=== PATIENT | female | born 1945 | race Caucasian/White ===

== ENCOUNTER 2025-04-28 07:02 | Inpatient (IN) | payer MEDICARE, MEDICAID ==
[~2025-04-28] VITALS: Ht 165.1 cm; Wt 80.0 kg
--- NOTE | 2025-04-28 07:07 | ELECTROCARDIOGRAPH REPORT ---
[facility] Test Date: 2025-04-28 Test Time: 07:04:52 Pat Name: CANELO MCDOWELL Department: EMERGENCY ROOM Room: [place] [address] Gender: F Cardiology Consultant: AMAN : 1945 Requested By: JENNIFFER KING Order Number: [id number] Reading MD: Dr. DALY Olmedo Measurements Intervals [place] Rate: 95 P: 205 WI: 226 QRS: 71 QRSD: 128 T: 86 QT: 362 QTc: 455 Interpretive Statements Sinus or ectopic atrial rhythm Sinus pause Prolonged WI interval Nonspecific intraventricular conduction delay Inferior infarct, acute (RCA) Minimal ST elevation, anterior leads Probable RV involvement, suggest recording right precordial leads Electronically Signed On 05-07-2025 13:50:[address] DALY Olmedo Please click the below link to view image of tracing.
--- NOTE | 2025-04-28 07:32 | Physician Documentation ---
Addendum CHIEF COMPLAINT/HPI: The patient is a 79-year-old female who arrives here from [facility] with a history of paroxysmal atrial fibrillation, on Eliquis and amiodarone. The patient complained of some chest pain around 5:00 a.m. this morning and an EKG revealed ST-elevation in the inferior leads. The patient was given aspirin and nitroglycerin before she arrived here. There is a verbal report of the patient having been DNR in the past but this was not obtained in writing today. She does have a surrogate decision maker who we have not been able to reach as of 7:30 a.m. Unfortunately, I am not able to obtain history beyond the patient's name and information derived in accompanying forms as her response to any inquiry has been Leave me alone. REVIEW OF SYSTEMS: Unable to obtain due to patient unresponsiveness to verbal inquiry. PHYSICAL EXAMINATION: Vitals and nursing note reviewed. Constitutional: General: Patient is awake, alert, oriented to name only in no acute distress and well appearing. Speech is clear and lucid. Appearance: Normal appearance. Patient is not ill-appearing, toxic-appearing or diaphoretic. HENT: Head: Normocephalic and atraumatic. Mouth: Mucous membranes are moist. Pharynx: Oropharynx is clear. Eyes: General: No scleral icterus. Extraocular Movements: Extraocular movements intact. Pupils: Pupils are equal, round, and reactive to light. Neck: Supple, no Kernig or Brudzinski sign. Cardiovascular: Rate and Rhythm: Normal rate and regular rhythm. Heart sounds: No murmur heard. Pulmonary: Effort: No respiratory distress. Breath sounds: No wheezing, rhonchi or rales. Abdominal: General: There is no distension. Palpations: There is no fluid wave, hepatomegaly or mass. Tenderness: There is no abdominal tenderness. There is no guarding. Musculoskeletal: General: No swelling or deformity. Skin: Coloration: Skin is not jaundiced. Findings: No erythema or rash. Neurological: Mental Status: Patient is alert. MEDICAL DECISION MAKING: Differential Diagnosis Chest Pain include (but is not limited to) MN, ACS, Pneumonia, Pneumothorax, PE, Aortic Dissection, Pericarditis, Myocarditis, Anemia, GERD and Musculoskeletal Pain. I texted the EKG to Dr. Barrera, caseworker on-call (7:25 a.m.) who indicated that he felt this patient was a poor candidate for the labor mediator. Departure Disposition: ADMITTED INPATIENT Admitted to Inpatient Unit: to hospitalist Impression: Primary Impression: Acute coronary syndrome Additional Impression: Myocardial infarction Condition: JENNIFFER Gregory MD Apr 28, 2025 07:32
--- NOTE | 2025-04-28 07:33 | RADIOLOGY REPORT ---
EXAM: DI CHEST,SINGLE VIEW HISTORY: CP COMPARISON: None TECHNIQUE: Portable upright AP view of the chest was performed. FINDINGS: No pneumothorax, consolidative infiltrates, or pulmonary edema. The heart is borderline enlarged. IMPRESSION: No acute intrathoracic process.
[2025-04-28 07:36] LABS: MEAN PLATELET VOLUME 8.3 FL (7.4-10.4); RED CELL DISTRIBUTION WIDTH 15.2 % (11.5-14.5)
[2025-04-28 08:03] LABS: CREATININE 0.94 MG/DL (0.40-0.90); PRO BRAIN NATRIURETIC PEPTIDE 1518 PG/ML (0-450); TOTAL CARBON DIOXIDE 26.7 MMOL/L (24-32); eCRCL 44 ML/MIN; eGFR 58 ML/MIN
--- NOTE | 2025-04-28 08:30 | CONSULTATION REPORT ---
Cardiac Consultation Report Providers to CC ~ Subjective Subjective Cardiology consult dictation ; year old female was sent from [facility] for an episode of chest pain 12 lead electrocardiogram was performed she was initially declared an acute MS then due to her mental status and the some records stating that she is DNR end of farther inability to touch the patient without her fighting back it was decided to cancel the acute MS. She is on Eliquis for chronic atrial fibrillation her [address] elevation two three and AVF. She is not complaining of any pain. Was sleeping peacefully until being awoken. Objective Vitals Vital Signs Date Time Temp Pulse Resp B/P (MAP) Pulse Ox O2 Delivery O2 Flow Rate FiO2 04/28/25 07:57 19 04/28/25 07:21 95 96 04/28/25 07:03 97.9 Lab Results: 04/28/25 0725 04/28/25 0725 Objective Does not know where she is does not know what facility she was in she thinks she has a physician in [place]. Thinks 3 minutes Shan to to the ground and brought her here. My attempts to examine her she pushes me away do not touch me do not do that. I did not hear heart murmur on examining her I could not feel any pulses in her feet the right leg is bandaged from the thigh to her toes. Left leg deformed feet no pulses in her left foot. Problem\Assessment\Plan Additional Plan Impression: Patient with dementia unable to cooperate in any way she would require general anesthesia and intubation perform any procedures on her. She has not she is flaccid not complaining. She is having an inferior wall MS with full anticoagulation with Eliquis the only medication that I have on her. Recommendation: I agree with DNR status. Comfort care. CHARLA ALVAREZ MD Apr 28, 2025 08:30
[2025-04-28 09:07] LABS: INR 1.0 INR
[2025-04-28 09:10] LABS: ETHANOL < 10 MG/DL (<10)
[2025-04-28] MEDS ORDERED: ondansetron/PF 4mg/2ml inj IV PRN (09:50)
[2025-04-28] MEDS ORDERED: magnesium hydroxide 30ml (MOM) UD suspension PO PRN (09:50)
[2025-04-28] MEDS ORDERED: magnesium sulf-water 2g/50mL 50 ML IV PRN (09:50)
[2025-04-28] MEDS ORDERED: potassium Cl 40MEQ/1/2NS 520ml 520 ML IV PRN (09:50)
[2025-04-28] MEDS ORDERED: morphine 4 MG/ML inj SYRINge IV PRN ×2 (09:50)
[2025-04-28] MEDS ORDERED: magnesium sulf-water 4G/100mL 100 ML IV PRN (09:50)
[2025-04-28] MEDS ORDERED: potassium Cl 20 mEq SR tablet PO PRN (09:50)
[2025-04-28] MEDS ORDERED: mag hydrox/Alum hydrox/simeth 30ml oral suspension PO PRN (09:50)
[2025-04-28] MEDS ORDERED: magnesium Cl slow-release 64mg tablet PO PRN (09:50)
[2025-04-28] MEDS ORDERED: HYDROcodone/acetaminophen 5mg/325mg tablet PO PRN (09:50)
[2025-04-28] MEDS: enoxaparin 80mg/0.8ml syringe SUBCUT SCH (10:38)
[2025-04-28 11:00] LABS: URINE AMPHETAMINE SCREEN NEGATIVE (Neg); URINE BARBITUATE SCREEN NEGATIVE (Neg); URINE BENZODIAZEPINES SCREEN NEGATIVE (Neg); URINE CANNABINOID SCREEN NEGATIVE (Neg); URINE COCAINE SCREEN NEGATIVE (Neg); URINE METHADONE SCREEN NEGATIVE (Neg); URINE OPIATE SCREEN POSITIVE (Neg); URINE PHENCYCLIDINE SCREEN NEGATIVE (Neg)
[2025-04-28] MEDS: normal saline 1000ml 1,000 ML IV SCH (11:38)
[2025-04-28] MEDS: normal saline 1000ml 1,000 ML IV ONE (12:18)
[2025-04-28] MEDS ORDERED: LEVO-65 PO (12:24)
[2025-04-28] MEDS ORDERED: OLAN-38 PO (12:24)
[2025-04-28] MEDS ORDERED: METR-159 PO (12:24)
[2025-04-28] MEDS ORDERED: ATOR-411 PO (12:24)
[2025-04-28] MEDS ORDERED: METO25TA6 PO (12:24)
[2025-04-28] MEDS ORDERED: LANTUS SUBCUT (12:24)
[2025-04-28] MEDS ORDERED: AMIO200T76 PO (12:24)
[2025-04-28] MEDS ORDERED: BISA10SU64 RC (12:24)
[2025-04-28] MEDS ORDERED: MELA3TAB41 PO (12:24)
--- NOTE | 2025-04-28 12:52 | ELECTROCARDIOGRAPH REPORT ---
[facility] Test Date: 2025-04-28 Test Time: 12:50:37 Pat Name: CANELO MCDOWELL Department: [facility] Patient ID: [facility]-[id number] Room: [place] [address] Gender: F Instrument Maintenance Supervisor: : 1945 Requested By: KARSTEN HUANG Order Number: [id number] Reading MD: Dr. DALY Olmedo Measurements Intervals [place] Rate: 78 P: -4 [place]: 191 QRS: 40 QRSD: 96 T: 76 QT: 417 QTc: 476 Interpretive Statements Sinus rhythm Abnormal R-wave progression, early transition Electronically Signed On 04-29-2025 19:22:[address] DALY Olmedo Please click the below link to view image of tracing.
[2025-04-28 13:05] LABS: URINE AMPHETAMINE SCREEN NEGATIVE (Neg); URINE BARBITUATE SCREEN NEGATIVE (Neg); URINE BENZODIAZEPINES SCREEN NEGATIVE (Neg); URINE CANNABINOID SCREEN NEGATIVE (Neg); URINE COCAINE SCREEN NEGATIVE (Neg); URINE METHADONE SCREEN NEGATIVE (Neg); URINE OPIATE SCREEN POSITIVE (Neg); URINE PHENCYCLIDINE SCREEN NEGATIVE (Neg)
--- NOTE | 2025-04-28 16:41 | PROGRESS NOTE ---
Progress Note Cardiology Providers to CC ~ Objective Vitals Cardiology follow-up note: Dr. De Leon called me to re-evaluate the patient and she had momentary lucidity. Nursing staff in the ER tell me that she continues to scream out in five the residents have her records he could not find any . Carotid formalin electrocardiogram with the nurses Health the patient's screams and fights and does not cooperate. I was able to listen to her this time and she does have a systolic murmur and she has a palpable pulse in her left groin. No palpable pulses in her feet. Records found states that she has vascular dementia. My recommendations are unchanged: 1. Medical therapy only. Resume the Eliquis. If desire at Plavix. She did have an ST elevated IN by EKG. 2. Should be DNR status. 3. Not a candidate for invasive evaluation and treatment. 4. He does not have a power of litigation attorney no one to take care of her the name that was found was called up she is a retired nurse and she says I am not responsible for the patient and I am not her POA. Result Diagram: 04/28/25 0725 04/28/2525 Coagulation Studies Laboratory Tests Test 04/28/25 07:23 Prothrombin Time 10.7 SECONDS (9.0-12.0) INR International Normalized Ratio 1.0 INR Coagulation Comments Problem\Assessment\Plan Additional Plan Recommendation: Patient once again is not a candidate for invasive evaluation. Medical therapy only. Supportive care. DNR status. CHARLA ALVAREZ MD Apr 28, 2025 16:41
--- NOTE | 2025-04-28 17:03 | HISTORY AND PHYSICAL-Residence ---
History & Physical Providers to CC Resident Creating Document: SEVEN MARIANO RES ~ History of Present Illness Primary Medical Doctor: Unknown Reason for Admit\\Complaint: STEMI History of Present Illness This is a 79-year-old female patient with a past medical history of hypertension, atrial fibrillation, type 2 diabetes mellitus, hyperlipidemia, vascular dementia and peripheral arterial disease with recent fem-pop bypass surgery presents to the hospital from [facility] with complaints of chest pain that began around 5:00 a.m. this morning. A stat EKG performed revealed a STEMI in the inferior leads, the patient is given aspirin nitroglycerin in the EMS and was brought into the hospital for STEMI. Information has been obtained from medical records from [facility], ER physician and Dr. Barrera as the patient is minimally conversant. The patient has vascular dementia with waxing and waning consciousness as per the prior medical records due to which at the time of evaluation by the physicians she has been agitated. With her ongoing mentation, Dr. Barrrea has deemed the patient to not be a candidate for any cardiac interventions due to risk of poor compliance, inability to cooperate for the procedure as well as due to the code status of DNR/DNI. At the time of exam, the patient denies any chest pain and has been resting comfortably in bed. Past history prior to this hospitalization: On speaking to Elizabeth, the patient's land retail field supervisor who is listed as a POA but it is not her POA as she is completely unrelated to the patient. Elizabeth reports that the patient only listed as her emergency contact but never as her POA. The patient was at [facility] after she had a complicated femoral-popliteal bypass graft surgery at [facility] with resection and reanastomosis by Dr. Giordano on 04/11 after which she developed paroxysmal AFib on 04/13 requiring amiodarone infusion. The hospitalization was further complicated by infected wounds growing Enterobacter requiring meropenem supplementation. She had to go back into the operating room for hemorrhage after the surgery and went into hemorrhagic shock. She required mechanical ventilation at 100% FiO2 for a prolonged period of time. She was then discharged on prolonged antibiotic therapy for 14 days to [facility]. Elizabeth states that since this procedure, she has steadily gone downhill in terms of her mentation. She also states that she has no family at all and she lives all by herself. Current evaluation of code status: Elizabeth is unable to legally provide the code status. Dr. Barrera team's the patient to be DNR and recommends continuing with medical management. Re-evaluated with the patient, she has a waxing and waning of consciousness. She would want to be a DNR and repeatedly says "leave me alone" Allergies: Coded Allergies: No Known Allergies (Unverified , 04/28/25) Home Medications Home Medications Active Reported Olanzapine 10 Mg Tablet 1 Tab PO BID 30 Days Flagyl* (Metronidazole) 500 Mg Tablet 1 Tab PO Q8H 10 Days Metoprolol Tartrate 25 Mg Tablet 1 Tab PO Q12H 30 Days Melatonin 3 Mg Tablet.sa 1 Tab PO HS 30 Days Levofloxacin 500 Mg Tablet 1 Tab PO DAILY 10 Days Lantus* (Insulin Glargine) 100 Unit/1 Ml Vial 25 Units SUBCUT HS 30 Days Dulcolax (Bisacodyl) 10 Mg Supp.rect 1 Supp RC DAILY 10 Days Lipitor (Atorvastatin Calcium) 40 Mg Tablet 1 Tab PO DAILY 30 Days Cordarone (Amiodarone HCl) 200 Mg Tablet 200 Mg PO DAILY Past Medical History Past Medical History Hypertension Paroxysmal atrial fibrillation Peripheral arterial disease status post fem-pop bypass Type 2 diabetes mellitus Hyperlipidemia Vascular dementia Past Surgical History Surgical History Comment Fem-pop bypass surgery Past Social History Social History Comment Unknown ROS ROS Unable to be obtained Exam Vitals: Vital Signs Date Time Temp Pulse Resp B/P (MAP) Pulse Ox O2 Delivery O2 Flow Rate FiO2 04/28/25 15:24 74 18 101/61 (74) 95 04/28/25 12:09 96.4 General: General: Waxing and waning level of consciousness, agitated, noncooperative HEENT: Conjunctiva pink, Sclera clear, Mucus Membranes dry Extremities: Dressing of the right lower extremity, onychomycosis of the bilateral feet. Erythema of the bilaterally visible feet Skin: Warm and Dry. No visible rashes Diagnostic Data Last Recorded Lab Results: 04/28/25 0725 04/28/25 0725 Diagnostic Data: Laboratory Tests Test 04/28/25 07:23 Prothrombin Time 10.7 SECONDS (9.0-12.0) INR International Normalized Ratio 1.0 INR Coagulation Comments Advance Care Planning Advanced Care plannin - 30 Minutes Additional Plan STEMI: Right coronary artery disease Hypotension secondary to above EKG reveals ST elevations in II, III and AVF leads Sequential troponins at 80, 700 and 385 Not a candidate for cardiac catheterization; unable to obatin echocardiogram due to agitation Medical management with Lovenox 80 mg b.i.d. Follow lipid panel. Continue home medication of Lipitor 40 mg daily Nitroglycerin PRN for chest pain For hypotension, 1 L IV fluid bolus given. Continue IVF at a rate of 100 cc/hour. Maintain map greater than 60 Continue front desk monitor Vascular dementia Agitation secondary to above Positive fentanyl in tox screen from unknown source Maintain fall precautions Frequent reorientation Avoid benzodiazepine Restart quetiapine after medication reconciliation Persistent atrial fibrillation: Rate controlled Chads Vasc: 8 Restart home medication of amiodarone and metoprolol for rate control On home medication of metoprolol tartrate 25 mg b.i.d., we will continue the same. Continue Lovenox this time As per prior medical records, patient has stopped Eliquis due to unwillingness to use the medication due to recent hemorrhagic shock episode Peripheral arterial disease: Status post fem-pop bypass graft on 04/11/2025 Requiring re-evaluation on 04/18/25 Enterobacter wound infection post surgery; continue Levaquin and Flagyl until 05/11/2025 Completed antibiotic therapy at [facility] Wound care consulted Type 2 Diabetes mellitus: Insulin-dependent Well-controlled; A1c 5.8 As per medical records, patient was on Lantus 25 units nightly and Humalog sliding Placed on hyperglycemia/hypoglycemia protocol with 10 units Lantus and low-dose sliding scale insulin As patient is not undergoing any cardiac surgery and is not critically ill, goal as per regular protocol between 110-130mg/dl Hypertension: Maintain blood pressure between 120-130 mmHg SBP Restart home medication of metoprolol tartrate 25 mg b.i.d. Severe protein energy malnutrition: Albumin 1.9 Nutrition consulted Ensure TID Lines: PIV Code status: DNR; discussed with the patient was 16-30 minutes regarding the code status and patient would like to be a DNR. Diet: Heart healthy diet DVT prophylaxis: Lovenox Seven Mariano PGY3, Internal medicine resident Patient was seen, examined and discussed with the attending MD, Dr. Lara Date of Service: Apr 28, 2025 Billing Provider: LISSETTE LARA MD Common Visit Codes: 77325-[id number] INP/OBS CARE (HIGH) Secondary Visit Codes: [id number] CARE PLAN 30 MINUTES SEVEN MARIANO, RES Apr 28, 2025 17:03 LISSETTE LARA MD Apr 30, 2025 07:52
--- NOTE | 2025-04-28 17:13 | ELECTROCARDIOGRAPH REPORT ---
[facility] Test Date: 2025-04-28 Test Time: 17:09:29 Pat Name: CANELO MCDOWELL Department: [facility]S Room: [place] [address] Gender: F Investor Relations Specialist: Mary Zavala : 1945 Requested By: CHARLA ALVAREZ Order Number: [id number] Reading MD: Dr. DALY Olmedo Measurements Intervals [place] Rate: 82 P: 31 DC: 197 QRS: 20 QRSD: 95 T: 92 QT: 372 QTc: 435 Interpretive Statements Sinus rhythm Minimal ST depression, lateral leads Minimal ST elevation, inferior leads Electronically Signed On 04-29-2025 19:20:[address] DALY Olmedo Please click the below link to view image of tracing.
[2025-04-28] MEDS ORDERED: DEXTROSE 15 GM of carb/4 tabs (each vial/BOTTLE has 4 tablets) PO PRN ×2 (17:45)
[2025-04-28] MEDS ORDERED: glucagon, human recombinant 1mg kit SUBCUT PRN (17:45)
[2025-04-28] MEDS ORDERED: dextrose 50%-water 50ml dispensing syringe IV PRN ×2 (17:45)
[2025-04-28 18:00] VITALS: BP 124/78; PULSE 88; RESP 13; TEMP 97.4; O2SAT 97
[2025-04-28] MEDS: Ensure Enlive - 237ML PO SCH (18:37)
[2025-04-28 20:00] VITALS: RESP 18; O2SAT 97
[2025-04-28] MEDS: K and/or MAG REPLACEMENT MC SCH (20:00)
[2025-04-28] MEDS: docusate sod 100mg capsule PO SCH (20:00)
[2025-04-28] MEDS: INSULIN LISPRO 100 UNIT/ML INSULN.PEN MULTI-DOSE SQ SCH (21:00)
[2025-04-28] MEDS: insulin glargine (Lantus) pen - multi-dose SQ SCH (21:00)
[2025-04-29] VITALS (8 sets, daily range): BP systolic 99–152; BP diastolic 52–82; PULSE 77–94; RESP 16–22; TEMP 97.1–99; O2SAT 96–98
[2025-04-29] MEDS: metroNIDAZOLE-Flagyl 500mg/NS 100 ML IV SCH (00:18)
[2025-04-29 06:48] LABS: MEAN PLATELET VOLUME 8.9 FL (7.4-10.4); RED CELL DISTRIBUTION WIDTH 14.8 % (11.5-14.5)
[2025-04-29 07:21] LABS: CHOL/HDL RATIO 3.3 (0.00-4.99); CREATININE 0.63 MG/DL (0.40-0.90); LDL CHOLESTEROL 64 MG/DL (50-100); TOTAL CARBON DIOXIDE 26.2 MMOL/L (24-32); eCRCL 66 ML/MIN; eGFR > 90 ML/MIN
[2025-04-29] MEDS ORDERED: metoprolol succinate 25mg (24-HOUR) SR. Tablet PO SCH (08:00)
[2025-04-29] MEDS: potassium Cl 20 mEq SR tablet PO PRN (08:37)
[2025-04-29] MEDS: levoFLOXACIN-Levaquin 500mg/D5 100 ML IV SCH (08:38)
--- NOTE | 2025-04-29 14:46 | PROGRESS NOTE ---
Progress Note Cardiology Providers to CC ~ Subjective Subjective Cardiology progress note: Resolved inferior wall myocardial infarction. Vascular dementia uncooperative patient not a candidate for invasive evaluation. Recommended for DNR status. Patient resisting nursing care she has feces that needs to be cleaned. Objective Result Diagram: 04/29/25 0554 04/29/25 0554 Objective No high-grade arrhythmias on monitoring. Systolic murmur heard. Right leg bandage from groin to meet foot chronic. Circulation and left foot by palpation [id number]. Has dementia moves all limbs appropriately no swallowing difficulty. Episodic impulsive uncontrolled behavior. Coagulation Studies Laboratory Tests Test 04/28/25 07:23 Prothrombin Time 10.7 SECONDS (9.0-12.0) INR International Normalized Ratio 1.0 INR Coagulation Comments Other Results She had an electrocardiogram yesterday took three nurses over an hour to do an electrocardiogram due to patient behavior. There are no Q-waves inferiorly. She came in with ST-elevation in three and AVF. Anterior wall shows chronic ischemic changes. Problem\Assessment\Plan Additional Plan Assessment: Acute coronary thrombus has resolved. Patient is not a candidate for invasive evaluation not a candidate for intervention or coronary bypass grafting. Recommendation: Patient was on chronic anticoagulation could act Plavix. However her laboratories are much worse with rehydration. He is nutritionally deficient albumins one. Hemoglobin down to nine. Case of sudden cardiac do not resuscitate. I will sign off as I am not adding anything to patient management. CHARLA ALVAREZ MD Apr 29, 2025 14:46
--- NOTE | 2025-04-29 14:57 | PROGRESS NOTE- Residence ---
Progress Note - Resident Providers to CC Resident Creating Document: SEVEN MARIANO, ANJALI ~ Central Line/PICC still needed: No Harris-Non Protocol Harris Indications Met/Not Met: F/C Indications Not Met Antibiotic Timeout Antibiotic Ordered?: Yes Subjective Patient has a waxing and waning level of consciousness, she has been compliant with oral medications and physical exam in the morning but later in the afternoon, patient is denying everything. She continues to deny her Lovenox. However, she is agreeable to obtain the echocardiogram today. She is otherwise comfortable and has no other acute complaints of chest pain or shortness of breath. Objective Vital Signs Date Time Temp Pulse Resp B/P (MAP) Pulse Ox O2 Delivery O2 Flow Rate FiO2 04/29/25 08:37 82 04/29/25 08:00 16 97 Room Air 04/29/25 06:00 98.4 152/82 (105) Result Diagram: 04/29/25 0554 04/29/25 0554 General: Awake and Alert, no acute distress. HEENT: Conjunctiva pink, Sclera clear, Mucus Membranes moist. Resp: Unlabored. Lungs clear to auscultation bilaterally. Heart: Regular Rate and rhythm, normal S1 and S2, grade 4 pansystolic murmur heard loudest in the mitral area Abdomen: Soft and non tender no organomegaly Extremities: Dressing of the right lower extremity with minimal drainage, onychomycosis of the bilateral feet. Erythema of the bilaterally visible feet Skin: Warm and Dry. No visible rashes Coagulation Studies Laboratory Tests Test 04/28/25 07:23 Prothrombin Time 10.7 SECONDS (9.0-12.0) INR International Normalized Ratio 1.0 INR Coagulation Comments Assessment Assessment This is a 79-year-old female patient with a past medical history of peripheral arterial disease status complex and complicated post fem-pop bypass surgery on the right lower limb with a complications including hemorrhagic shock postoperatively and acute hypoxemic respiratory failure requiring prolonged intubation and mechanical ventilation. She has baseline cognitive impairment making her a difficult patient to remain compliant with medications. She was transferred to [facility] for long-term care. She was then transferred from [facility] to our hospital due to new onset chest pain that began early in the morning, she was found to have a STEMI in the inferior wall and was transferred for further care. Due to her baseline cognitive impairment, the patient is not a candidate for cardiac catheterization and is noncompliant to the procedure as well. Hence, she is currently being managed medically. Plan Plan STEMI: Right coronary artery disease Hypotension secondary to above EKG reveals ST elevations in II, III and AVF leads Sequential troponins at 80, 700, 1385 ans today it is at 4654 ([address]) Declining Lovenox. No further episodes of chest pain. Obtain echocardiogram Continue monitoring closely, NTG p.r.n. for chest pain. Discontinue IVF today; close hemodynamic monitoring Continue cafeteria monitor Vascular dementia Agitation secondary to above Positive fentanyl in tox screen from unknown source Maintain fall precautions Frequent reorientation Avoid benzodiazepine Continue Seroquel 25 mg HS Persistent atrial fibrillation: Rate controlled Chads Vasc: 8; high-risk of stroke Restart home medication of amiodarone and metoprolol tartrate 25 mg b.i.d. for rate control Declining all anticoagulation including Lovenox As per prior medical records, patient has stopped Eliquis due to unwillingness to use the medication due to recent hemorrhagic shock episode Peripheral arterial disease: Status post fem-pop bypass graft on 04/11/2025 Requiring surgical reintervention on 04/18/25 Enterobacter wound infection post surgery; continue p.o. Levaquin and Flagyl until 05/11/2025 Wound care consulted Heart failure of unknown ejection fraction: In no acute exacerbation Cardiomegaly and pulmonary vascular congestion evident on the chest x-ray Continue metoprolol 25 mg b.i.d. Follow echocardiogram Close hemodynamic monitoring Type 2 Diabetes mellitus: Insulin-dependent Well-controlled; A1c 5.8 As per medical records, patient was on Lantus 25 units nightly and Humalog sliding Placed on hyperglycemia/hypoglycemia protocol with 10 units Lantus and low-dose sliding scale insulin Patient declining insulin; continue monitoring via Accu-Cheks Maintain goal between 110-140 mg/dl Hypertension: Maintain blood pressure between 120-130 mmHg SBP Restart home medication of metoprolol tartrate 25 mg b.i.d. Severe protein energy malnutrition: Albumin 1.9 Nutrition consulted Ensure TID Lines: PIV Code status: DNR Diet: Heart healthy diet, ensures DVT prophylaxis: Lovenox; actively moving Seven Mariano PGY3, Internal medicine resident Patient was seen, examined and discussed with the attending MD, Dr. Lara Date of Service: Apr 29, 2025 Billing Provider: LISSETTE LARA MD Common Visit Codes: [id number] INP/OBS CARE(HIGH) SEVEN MARIANO, RES Apr 29, 2025 14:56 LISSETTE LARA MD Apr 30, 2025 07:54
[2025-04-29] MEDS: HYDROcodone/acetaminophen 10/325mg tab PO PRN (16:28)
--- NOTE | 2025-04-29 19:53 | CARDIOLOGY REPORT ---
APPROVED REPORT EXAM: Comprehensive 2D, Doppler, and color-flow Echocardiogram. Patient Location: [facility] Heart Rate: 80's bpm Rhythm: SINUS Indications MYOCARDIAL INFARCTION ATRIAL FIBRILLATION HYPERTENSION DIABETES MELLITUS 2 Rail Gang Supervisor: NONE Previous echo: NONE 2D Dimensions RVDd 3.2 cm IVSd 1.4 (0.7-1.1cm) LVDd 4.8 cm PWd 1.4 (0.7-1.1cm) IVSs 1.5 (0.8-1.2cm) LVDs 2.7 (2.5-4.0cm) PWs 1.6 (0.8-1.2cm) LVOT Diameter 2.07 (1.8-2.4cm) LVEF(%) 75.5 (>50%) FS (%) 44.3 % SV 82.2 ml CO 7.5 L/min M-Mode Dimensions Left Atrium(MM) 3.78 (2.5-4.0cm) Aortic Root 3.16 (2.2-3.7cm) Aortic Cusp Exc 0.93 (1.5-2.0cm) Aortic Valve AoV Peak Miles. 281.9 cm/s AoV VTI 51.3 cm AO Peak GR. 31.8 mmHg AO Mean GR. 18 mmHg LVOT VTI 23.96 cm LVOT Peak Miles. 131.1 cm/s KIM(VTI)/BSA 1.57 cm2/m2 KIM (VTI) 1.57 cm2 AV DI 0.47 % Mitral Valve MV E Velocity 122.5 cm/s MV Peak Gr. 7 mmHg MV DECEL TIME 160 ms MV A Velocity 100.9 cm/s MV PHT 68 ms E/A Ratio 1.2 MVA (PHT) 3.24 cm2 MV VMax 133.3 cm/s Tricuspid Valve TR P. Velocity 291 cm/s RAP ESTIMATE 10 mmHg TR Peak Gr. 34 mmHg RVSP 44 mmHg LEFT VENTRICLE Normal LV size and function. Moderate concentric hypertrophy. Overall LVEF is 65-70%. RIGHT VENTRICLE RV is normal size and function. Estimated PA systolic pressure is 44 mm of mercury ATRIA The left atrium size is normal. AORTIC VALVE Trileaflet AV appears mildly sclerotic with mild stenosis. KIM: 1.57 cmsq; Pkv: 282 cm/sec; Gradients: 32/18 mmHG. No insufficiency by color and spectral flow Doppler. MITRAL VALVE Mild MV annular calcification without stenosis. Trace regurgitation by color and spectral flow Doppler. TRICUSPID VALVE TV appears structurally normal with trace regurgitation by color and spectral flow Doppler. PULMONIC VALVE Normal PV without stenosis, physiologic insufficiency by color and spectral flow Doppler. GREAT VESSELS The aortic root is normal in size. PERICARDIUM Normal pericardium. No effusion. Other Information Study Quality: Adequate Conclusion Overall LVEF is 65-70%. Normal LV size and function. Moderate concentric hypertrophy. RV is normal size and function. Estimated PA systolic pressure is 44 mm of mercury Trileaflet AV appears mildly sclerotic with mild stenosis. KIM: 1.57 cmsq; Pkv: 282 cm/sec; Gradients: 32/18 mmHG. No insufficiency by color and spectral flow Doppler. Mild MV annular calcification without stenosis. Trace regurgitation by color and spectral flow Doppler. TV appears structurally normal with trace regurgitation by color and spectral flow Doppler. Normal PV without stenosis, physiologic insufficiency by color and spectral flow Doppler. Normal pericardium. No effusion.
[2025-04-30 02:00] VITALS: BP 146/62; PULSE 85; RESP 14; TEMP 97.5; O2SAT 97
[2025-04-30 06:03] LABS: MEAN PLATELET VOLUME 9.1 FL (7.4-10.4); RED CELL DISTRIBUTION WIDTH 15.0 % (11.5-14.5)
[2025-04-30 06:26] LABS: CREATININE 0.74 MG/DL (0.40-0.90); TOTAL CARBON DIOXIDE 26.7 MMOL/L (24-32); eCRCL 56 ML/MIN; eGFR 76 ML/MIN
[2025-04-30 07:00] VITALS: BP 158/59; PULSE 83; RESP 17; TEMP 99; O2SAT 95
[2025-04-30 11:00] VITALS: BP 140/50; PULSE 86; RESP 18; TEMP 99.1; O2SAT 95
[2025-04-30 12:42] LABS: LEUKOCYTE ESTERASE ,URINE SMALL (Neg); OCCULT BLOOD,URINE TRACE-INTACT (Neg)
[2025-04-30 12:49] LABS: UA COLLECTION TYPE OTHER
[2025-04-30 12:51] LABS: NITRITES, URINE NEGATIVE (Neg)
[2025-04-30 12:53] LABS: MUCUS STRANDS NONE SEEN /LPF (Neg); RENAL CELLS, URINE FEW /HPF; SQUAMOUS EPITHELIAL CELL,UR FEW /LPF (FEW); YEAST MANY /HPF (NEGATIVE)
[2025-04-30] MEDS: Nepro carb steady vanilla 8oz. PO SCH (13:04)
--- NOTE | 2025-04-30 16:37 | DISCHARGE SUMMARY-Residence ---
Discharge Summary Providers to CC Resident Creating Document: FIONA RODRÍGUEZANJALI ~ Discharge Summary Admission Diagnosis: STEMI Hospital Course DATE OF ADMISSION: 04/28/2025 DATE OF DISCHARGE: 04/30/25 Labs in the time of discharge Hemoglobin 10.2 WBCs 6.1 Sodium 140 Potassium 4.4 Creatinine 0.74 Albumin 1.7 ProBNP 1518 Total cholesterol 109 LDL 64 HDL 33 Triglycerides 84 Echocardiogram done on 04/29/2025 Overall LVEF is 65-70%. Normal LV size and function. Moderate concentric hypertrophy. RV is normal size and function. Estimated PA systolic pressure is 44 mm of mercury Trileaflet AV appears mildly sclerotic with mild stenosis. KIM: 1.57 cmsq; Pkv: 282 cm/sec; Gradients: 32/18 mmHG. No insufficiency by color and spectral flow Doppler. Mild MV annular calcification without stenosis. Trace regurgitation by color and spectral flow Doppler. TV appears structurally normal with trace regurgitation by color and spectral flow Doppler. Normal PV without stenosis, physiologic insufficiency by color and spectral flow Doppler. Normal pericardium. No effusion. Discharge Diagnosis\Comment: STEMI Acute Right coronary artery disease Hypotension, resolved Vascular dementia Peripheral artery disease Chronic heart failure with preserved ejection fraction, not in acute exacerbation Type 2 diabetes mellitus Hypertension Severe protein energy malnutrition Operations\Procedures: None Consultants: Dr. Barrera Complications: None Condition on DC: Stable Discharge Summary: This is a 79-year-old female patient with a past medical history of hypertension, atrial fibrillation, type 2 diabetes mellitus, hyperlipidemia, vascular dementia and peripheral arterial disease with recent fem-pop bypass surgery presents to the hospital from [facility] with complaints of chest pain. A stat EKG performed revealed a STEMI in the inferior leads, the patient is given aspirin nitroglycerin in the EMS and was brought into the hospital for STEMI. The patient has vascular dementia with waxing and waning consciousness as per the prior medical records due to which at the time of evaluation by the physicians she has been agitated. With her ongoing mentation, Dr. Barrera has deemed the patient to not be a candidate for any cardiac interventions due to risk of poor compliance, inability to cooperate for the procedure as well as due to the code status of DNR/DNI. At the time of exam, the patient denies any chest pain and has been resting comfortably in bed. Patient has been admitted for STEMI, acute right coronary artery disease, she was managed medically, was initiated on Lovenox 80 b.i.d., received three doses, patient kept refusing Lovenox. She has been discharged on aspirin, Plavix for one year and then aspirin for lifelong, also ordered atorvastatin. Patient has a history of persistent AFib, rate controlled, continued patient's home medication metoprolol 25 mg b.i.d. and amiodarone. Patient is unwilling to use Eliquis because of history of hemorrhagic shock episode. She also had hypotension which has been managed by giving IV fluids. She has a history of vascular dementia and had agitation secondary to above, has been managed with frequent reorientation and continued her home medication of olanzapine. She has a history of peripheral artery disease, status post fem-pop bypass on 04/01/2025, post surgery wound cultures positive for Enterobacter, on Levaquin and Flagyl until 05/11/2025. Wound care has been done. She has a history of type 2 diabetes mellitus, A1c 5.8, continued her home medication Lantus and Humalog. Also has a history of hypertension, blood pressure is in the normal range. She has severe protein energy malnutrition with an albumin of 1.9, ensure t.i.d. has been given. Patient is stable at the time of discharge At the time of discharge had the following physical examination findings General: Awake and Alert, no acute distress. HEENT: Conjunctiva pink, Sclera clear, Mucus Membranes moist. Resp: Unlabored. Lungs clear to auscultation bilaterally. Heart: Regular Rate and rhythm, normal S1 and S2, grade 4 pansystolic murmur heard loudest in the mitral area Abdomen: Soft and non tender no organomegaly Extremities: Dressing of the right lower extremity with minimal drainage, onychomycosis of the bilateral feet. Erythema of the bilaterally visible feet Skin: Warm and Dry. No visible rashes Discharge medications Aspirin 81 mg daily Plavix 75 mg daily for 12 months Atorvastatin 40 mg daily Nepro t.i.d. Metoprolol tartrate 25 mg b.i.d. Amiodarone 200 mg daily Flagyl 500 mg Q eight, stop date 05/11/25 Levofloxacin 500 mg, stop date 05/11/2025 Lantus Discharge instructions Follow up with PCP in two weeks Follow up with drop board worker, Dr. Barrera in two weeks Continue to take aspirin, Plavix, atorvastatin Continue to take metoprolol tartrate and amiodarone Continue to take Flagyl and levofloxacin, started 05/11/2025 *Problems/Diagnosis: (1) Myocardial infarction Status: Acute (2) Acute coronary syndrome Status: Acute Total Time Spent on D/C: > 30 Minutes Date of Service: Apr 30, 2025 Billing Provider: LISSETTE LARA MD Common Visit Codes: 80610-EXS/OBS DISCH DAY >30min FIONA RODRÍGUEZ, RES Apr 30, 2025 15:54 LISSETTE LARA MD May 01, 2025 07:21
== END 2025-04-30 14:25 | DRG 280 ==
LOC: ER 07:03 → ED HOLD 09:54 → PCU 3S 16:44
PROVIDERS: ADMIT Internal Medicine; ATTEND Internal Medicine
DX: I21.19 ST elevation (STEMI) myocardial infarction involving other coronary artery of inferior wall (principal); E43 Unspecified severe protein-calorie malnutrition; Z66 Do not resuscitate; I50.32 Chronic diastolic (congestive) heart failure; Z51.5 Encounter for palliative care; I95.9 Hypotension, unspecified; I48.0 Paroxysmal atrial fibrillation; Z79.01 Long term (current) use of anticoagulants; E11.51 Type 2 diabetes mellitus with diabetic peripheral angiopathy without gangrene; F01.50 Vascular dementia, unspecified severity, without behavioral disturbance, psychotic disturbance, mood disturbance, and anxiety; I11.0 Hypertensive heart disease with heart failure; I48.19 Other persistent atrial fibrillation; Z20.822 Contact with and (suspected) exposure to COVID-19; E78.5 Hyperlipidemia, unspecified; Z79.4 Long term (current) use of insulin; Z68.29 Body mass index [BMI] 29.0-29.9, adult; Z91.199 Patient's noncompliance with other medical treatment and regimen due to unspecified reason
CPT/HCPCS: 36415; 71045; 80048; 80061; 80076; 80305; 80320; 81001; 82948; 83036; 83605; 83735; 83880; 84132; 84156; 84484; 85025; 85610; 87081; 87811; 92508; 92616; 93005; 93306; 99285; A6196; A6223; A6253; A6260; A6446; A6449; C1758; G0378; J1650; J1815; J1956; J3490; J7030

== ENCOUNTER 2025-05-21 06:40 | Emergency (ER) | payer MEDICARE, MEDICAID ==
[~2025-05-21] VITALS: Ht 172.7 cm; Wt 75.0 kg
[~2025-05-21 06:40] MED LIST: AMIO200T76 PO; ATOR-411 PO; BISA10SU64 RC; LANTUS SUBCUT; LEVO-65 PO; MELA3TAB41 PO; METO25TA6 PO; METR-159 PO; OLAN-38 PO
--- NOTE | 2025-05-21 07:03 | Physician Documentation ---
History of Present Illness ~ Chief Complaint: See Chief Complaint Stated Complaint: POST SURGERY WOUND Time Seen by MD: 06:57 OK to notify your PCP?: Yes Primary Medical Doctor: Unknown HPI 79-year-old female presenting from [facility] for bleeding from her right leg surgical wound. PMH of dementia. Reportedly patient had a femoral popliteal bypass done several days ago and has been in virus since. The nurse went into check on her this morning and noticed that the dressing on her right leg was soaked with blood. They noticed that the wound was bleeding. They wrapped it with pressure dressing and sent her to the hospital. Patient has dementia and can not provide history aside from saying that she feels weak. No reports of any chest pain, nausea, vomiting or any other associated symptoms. Medication Reconciliation Allergies: Coded Allergies: No Known Allergies (Unverified , 05/21/25) Scheduled Amiodarone Hcl (Cordarone), 200 MG PO DAILY, (Reported) Atorvastatin Calcium (Lipitor), 1 TAB PO DAILY, (Reported) Bisacodyl (Dulcolax), 1 SUPP RC DAILY, (Reported) Insulin Glargine,Hum.rec.anlog* (Lantus*), 25 UNITS SUBCUT HS, (Reported) Levofloxacin (Levofloxacin), 1 TAB PO DAILY, (Reported) Melatonin (Melatonin), 1 TAB PO HS, (Reported) Metoprolol Tartrate (Metoprolol Tartrate), 1 TAB PO Q12H, (Reported) Metronidazole* (Flagyl*), 1 TAB PO Q8H, (Reported) Olanzapine (Olanzapine), 1 TAB PO BID, (Reported) Past Medical History Past Medical History: Dementia Unable to obtain complete PMH: altered mental status Review of Systems ROS As stated above in the HPI, otherwise all systems are reviewed and negative. Physical Exam Vital Signs: RN Vital Signs have been reviewed: Yes, Temperature: 97.2, Source: Oral, Heart Rate: 98, Respiratory Rate: 15, BP: 96/46, Pulse Oximetry: 100, Weight: 75.000 Oxygen Flow Rate: 0 Physical Exam I have reviewed the triage vitals. CONST: Well developed and well nourished. In no acute distress HENT: Head Atraumatic EYES: Pupils are equal, round and reactive to light. Normal conjunctiva NECK: Normal range of motion. Supple. CARDIO: Normal rate and regular rhythm. No murmurs, rubs, or gallops. S1, S2. PULM/CHEST: No respiratory distress. Lungs clear to auscultation. No wheeze ABD: Soft and nontender. Nondistended. Bowel sounds normal. No guarding. : Exam deferred MSK: No edema. No deformity. NEURO: Alert and oriented to person, place and time. Moving all extremities SKIN: Warm and dry. PSYCH: Normal mood and affect. Good eye contact. Progress Progress Note 8:55 a.m. phone call to vascular surgeon at [facility]. Doctor said patient has hematoma, do not send to another facility. Patient should be seen by original team, if not available seen by vascular surgeon. [id number] spoke was [facility]. 12:14 p.m. on the phone with [facility] vascular surgeon agreed to ge nerously except the patient. 13:27 p.m. spoke with hospitalist who generously agreed to accept patient Results/Orders Reviewed/noted all lab results: Yes Results/Orders Orders - MARIA DE JESUS BARRIGA MD Culture Blood (05/22/25 09:21) Completed Orders - MARIA DE JESUS BARRIGA MD Procalcitonin (05/22/25 09:21) Ceftriaxone 2gm/D5w 50ml Bag (Rocephin 2 (05/22/25 09:25) Lacticsepsis (05/22/25 09:21) Normal Saline 1000ml (0.9% Sodium Chlori (05/22/25 09:25) Normal Saline 1000ml (0.9% Sodium Chlori (05/22/25 09:25) Diphenhydramine Inj (Benadryl Inj.) (05/22/25 09:25) Morphine 2mg/Ml Inj. (Morphine Inj.) (05/22/25 09:25) Cbc/Diff (05/22/25 09:24) BMP (05/22/25 09:24) Lorazepam Inj (Ativan Inj) (05/22/25 10:20) Haloperidol Lact. (Haldol) (05/22/25 16:55) Laboratory Tests Test 05/21/25 10:53 05/21/25 11:07 05/22/25 10:28 05/22/25 11:03 Urine Specimen Description Harris cath Urine Color Yellow Urine Clarity Cloudy Urine pH 5.0 Urine Specific [place] >=1.030 Urine Protein Trace Urine Glucose (UA) Negative Urine Ketones Negative Urine Occult Blood Trace-intact Urine Nitrite Negative Urine Bilirubin Small Urine Urobilinogen 0.2 Urine Leukocyte Esterase Small H Urine RBC 0-2 Urine WBC Tntc H Urine WBC Clumps Many Urine Squamous Epithelial Cells None seen Urine Renal Cells Few Urine Bacteria 3+ Urine Mucus Few Urine Yeast Many Urine Culture Indicated Indicated Volume Urine Centrifuged 6 ml Urine Comment Low volume White Blood Count 8.5 8.7 Red Blood Count 2.81 L 2.77 L Hemoglobin 8.4 L 8.2 L Hematocrit 26.8 L 25.6 L Mean Corpuscular Volume 95.4 92.3 Mean Corpuscular Hemoglobin 29.7 29.6 Mean Corpuscular Hemoglobin Concent 31.1 L 32.0 L Red Cell Distribution Width 17.2 H 16.7 H Platelet Count 446 H 530 H Mean Platelet Volume 8.0 7.9 Neutrophils (%) (Auto) 72.6 80.8 H Lymphocytes (%) (Auto) 12.7 L 8.3 L Monocytes (%) (Auto) 13.6 H 9.8 Eosinophils (%) (Auto) 0.5 0.4 Basophils (%) (Auto) 0.6 0.7 Neutrophils # (Auto) 6.1 7.0 Lymphocytes # (Auto) 1.1 0.7 L Monocytes # (Auto) 1.1 H 0.9 Eosinophils # (Auto) 0.0 0.0 Basophils # (Auto) 0.1 0.1 CBC Comment Prothrombin Time 12.2 H INR International Normalized Ratio 1.2 Activated Partial Thromboplast Time 26 Coagulation Comments Sodium Level 139 134 L Potassium Level 4.0 4.1 Chloride Level 105 101 Carbon Dioxide Level 25.3 24.1 Anion Gap 9 9 Blood Urea Nitrogen 32 H 35 H Creatinine 0.97 H 0.99 H Estimated GFR/1.73 m2 56 54 BUN/Creatinine Ratio 33.0 H 35.4 H Glucose Level 129 H 190 H Calcium Level 8.8 8.9 Total Bilirubin 0.7 Aspartate Amino Transf (AST/SGOT) 25 Alanine Aminotransferase (ALT/SGPT) 10 L Alkaline Phosphatase 102 Total Protein 5.4 L Albumin 1.7 L 2.0 L Globulin 3.7 Albumin/Globulin Ratio 0.5 L Chemistry Comments Procalcitonin 0.76 H Lactic Acid Level 1.6 Microbiology Date/Time Source Procedure Growth Status 05/22/25 11:03 Blood Hand Left Blood Culture - Preliminary NO GROWTH AFTER 4 DAYS Resulted 05/21/25 11:16 Urine Harris Cath Urine Culture - Final Clary Albicans, Presumptive Complete Re-Evaluation Re-Evaluation : Re-Evaluation: Unchanged Progress Patient was signed out to me at shift change. I made additional attempts to transfer the patient. Ultimately patient was finally sent to [facility] surgery will help monitor the patient. The patient did have repeat hematocrit. Hematocrit dropped from 26.8225.6. Patient is anemic with a drop his minimal which was reassuring. Chemistries were also repeated in her also or similar without any significant changes. Lactic acid is 1.6 and the patient is perfusing. Procalcitonin initially was slightly elevated at 0.76. Patient did have a small UTI therefore I started the patient on Rocephin 2 g were given and treated aggressively. Patient was easily agitated and received Haldol by me Ativan as well as morphine and Benadryl with fluid boluses. Upon arrival patient also received Zyprexa 20 mg IM and Benadryl 50 and that was done so that the patient would tolerate a CT angio of his lower extremity. Continuous media monitor interpretation showed sinus tachycardia heart rate 100s, abnormal, my interpretation. Pulse oximetry monitor interpretation shows normal oxygenation at 96% room air, normal, my interpretation. EKG/XRAY/CT/US/VASC/MRI EKG : Intepreting Monitor?: Yes Additional Comment EKG as interpreted by ED MD indicating normal sinus rhythm with a rate of 94 beats per minute, no ischemia, normal axis Chest X-Ray : Interpreted By: radiologist Views: 1 VIEW Additional Comments CHEST RADIOGRAPH INDICATION: weakness TECHNIQUE: Single frontal view of the chest was obtained COMPARISON: DI CHEST,SINGLE VIEW on DOS: 04/28/25, XR CHEST 2 VIEWS on DOS: 08/09/24 FINDINGS: Lines and Tubes: None Lungs: Clear Pleura: No effusion. No pneumothorax. Cardiomediastinal contours: Unremarkable Bones: Unremarkable IMPRESSION: 1. No acute disease. : Impression CTA RIGHT LOWER EXTREMITY RUNOFF WITH CONTRAST INDICATION: bleeding from fem/pop graft. COMPARISON: None TECHNIQUE: Axial CT images of the right lower extremity are obtained at 1 mm collimation in the early arterial phase after intravenous contrast administration. Coronal maximum intensity projection (MIP) images are provided. 3-D images of the abdominal aorta and bilateral lower extremity arteries were constructed on an independent workstation. Radiation optimization: All CT scans at this facility use at least one of these dose optimization techniques: Automated exposure control mA and/or kV adjustment per patient size (includes targeted exams where dose is matched to clinical indication) or iterative reconstruction. CONTRAST: 99 cc Omnipaque 350 RADIATION DOSE: CTDI: 17 mGy DLP: 1091 mGy-cm FINDINGS: RIGHT LOWER EXTREMITY RUN-OFF: External iliac: The visualized portion of the artery is widely patent. Internal iliac: Patent without hemodynamically significant stenosis. BROOMMAKER: Patent without hemodynamically significant stenosis. There is a graft from the BROOMMAKER to the popliteal artery that is patent. There is severe focal narrowing of the graft in the mid to lower thigh due to extrinsic mass effect. SFA: Occluded Profunda Femoris: Patent without hemodynamically significant stenosis. Popliteal: Patent without hemodynamically significant stenosis. No aneurysm or abnormal medial deviation is noted. Anterior Tibial: Heavy calcification degrades evaluation of the vessel lumen. Tibioperoneal Trunk: Patent without hemodynamically significant stenosis. Peroneal: Heavily calcified but appears patent. Posterior Tibial: Occluded Dorsalis Pedis: Heavy calcification degrades evaluation. The common and lateral plantar arteries are not opacified and may be occluded. ADDITIONAL FINDINGS: There is an approximately 8.3 x 12.9 x 31.4 cm mixed density hematoma that predominantly occupies the posterior muscular compartment of the thigh that also extends superiorly along the fem-pop bypass graft within the sartorius muscular sheath. No active extravasation of contrast is identified in the thigh. There is moderate diffuse soft tissue edema in the right lower extremity. No acute osseous abnormality is identified. IMPRESSION: Large mixed density hematoma in the posterior muscular compartment of the thigh and extending superiorly along the fem-pop bypass graft within the sartorius muscular sheath. No active extravasation of contrast is identified in the thigh. Severe focal narrowing of the bypass graft in the mid to distal thigh by extrinsic mass effect from the hematoma. Medical Decision Making Additional information obtaine: old records Findings Postoperative bleeding of in fem-pop site transferred to vascular surgery Differential Dx:Considerations: Include: anemia Additional Information 71-year-old female presenting with bleeding from her right femoral popliteal bypass graft wound. Labs and imaging ordered. Her lab workup indicates anemia with a hemoglobin of 8.4. CT angiogram of the right lower extremity indicated a large hematoma adjacent to the femoral popliteal bypass graft with narrowing of the graft due to pressure from the hematoma. Lab workup indicates anemia with a hemoglobin of 8.4. The patient had the he graft performed at [facility]. She will require transfer as we do not have vascular surgery available at this time at our hospital. Departure Disposition: 02 SHORT TERM HOSPITAL Impression: Primary Impression: Occlusion of femoropopliteal bypass graft Additional Impressions: Thigh hematoma Anemia UTI (urinary tract infection) Qualified Codes: N30.00 - Acute cystitis without hematuria Condition: Guarded Referrals: NO PRIMARY CARE PROVIDER (PCP) Education Educated: Patient Critical Care Note Total Time (mins): 90 Critical Care Note The very real possibility of a deterioration of this patient's condition required the highest level of my preparedness for sudden, emergent intervention. I provided critical care services, which included medication orders, frequent reevaluations of the patient's condition and response to treatment, ordering and reviewing test results, and discussing the case with various consultants. Exc ludes time spent performing separately billable procedures. The critical care time associated with the care of the patient was. 90 minutes Signature Scribe Signature: Scribed for Meghan York MD by Marin Bethea . 05/22/25 08:35 Attestation: The note accurately reflects work and decisions made by me.Meghan Bruce MD 05/21/25 16:37 MEGHAN YORK MD May 21, 2025 07:03 MARIN BARRIGA May 22, 2025 08:36 MARIA DE JESUS BARRIGA MD May 25, 2025 11:22
--- NOTE | 2025-05-21 07:14 | ELECTROCARDIOGRAPH REPORT ---
[facility] Test Date: 2025-05-21 Test Time: 07:12:57 Pat Name: CANELO MCDOWELL Department: [facility] Patient ID: [facility][id number] Room: Gender: F Foster Winder: : 1945 Requested By: EDILIA YORK Order Number: [id number] Reading MD: Dr. Gerson Lynn Measurements Intervals [place] Rate: 94 P: 76 [place]: 159 QRS: 12 QRSD: 93 T: -17 QT: 404 QTc: 506 Interpretive Statements Sinus rhythm LVH by voltage Tall R wave in V2, consider RVH or PMI Borderline T abnormalities, inferior leads Prolonged QT interval Electronically Signed On 05-22-2025 11:18:[address] Gerson Lynn Please click the below link to view image of tracing.
[2025-05-21] MEDS: normal saline 1000ml 1,000 ML IV ONE (07:21)
--- NOTE | 2025-05-21 07:31 | RADIOLOGY REPORT ---
CHEST RADIOGRAPH INDICATION: weakness TECHNIQUE: Single frontal view of the chest was obtained COMPARISON: DI CHEST,SINGLE VIEW on DOS: 04/28/25, XR CHEST 2 VIEWS on DOS: 08/09/24 FINDINGS: Lines and Tubes: None Lungs: Clear Pleura: No effusion. No pneumothorax. Cardiomediastinal contours: Unremarkable Bones: Unremarkable IMPRESSION: 1. No acute disease.
[2025-05-21] MEDS: ziprasidone IM 20mg inj **IM only IM ONE (10:45)
[2025-05-21 11:14] LABS: LEUKOCYTE ESTERASE ,URINE SMALL (Neg); NITRITES, URINE NEGATIVE (Neg); OCCULT BLOOD,URINE TRACE-INTACT (Neg)
[2025-05-21 11:16] LABS: UA COLLECTION TYPE FOLEY CATH
[2025-05-21 11:20] LABS: MUCUS STRANDS FEW /LPF (Neg); RENAL CELLS, URINE FEW /HPF; SQUAMOUS EPITHELIAL CELL,UR NONE SEEN /LPF (FEW); WBC CLUMPS,URINE MANY /HPF (NEGATIVE); YEAST MANY /HPF (NEGATIVE)
[2025-05-21 11:48] LABS: MEAN PLATELET VOLUME 8.0 FL (7.4-10.4); RED CELL DISTRIBUTION WIDTH 17.2 % (11.5-14.5)
[2025-05-21 11:59] LABS: APTT 26 SECONDS (22-32); INR 1.2 INR
[2025-05-21 12:11] LABS: CREATININE 0.97 MG/DL (0.40-0.90); TOTAL CARBON DIOXIDE 25.3 MMOL/L (24-32); eCRCL 48 ML/MIN; eGFR 56 ML/MIN
--- NOTE | 2025-05-21 14:53 | RADIOLOGY REPORT ---
CTA RIGHT LOWER EXTREMITY RUNOFF WITH CONTRAST INDICATION: bleeding from fem/pop graft. COMPARISON: None TECHNIQUE: Axial CT images of the right lower extremity are obtained at 1 mm collimation in the early arterial phase after intravenous contrast administration. Coronal maximum intensity projection (MIP) images are provided. 3-D images of the abdominal aorta and bilateral lower extremity arteries were constructed on an independent workstation. Radiation optimization: All CT scans at this facility use at least one of these dose optimization techniques: Automated exposure control mA and/or kV adjustment per patient size (includes targeted exams where dose is matched to clinical indication) or iterative reconstruction. CONTRAST: 99 cc Omnipaque 350 RADIATION DOSE: CTDI: 17 mGy DLP: 1091 mGy-cm FINDINGS: RIGHT LOWER EXTREMITY RUN-OFF: External iliac: The visualized portion of the artery is widely patent. Internal iliac: Patent without hemodynamically significant stenosis. GAUGER CHIEF: Patent without hemodynamically significant stenosis. There is a graft from the GAUGER CHIEF to the popliteal artery that is patent. There is severe focal narrowing of the graft in the mid to lower thigh due to extrinsic mass effect. SFA: Occluded Profunda Femoris: Patent without hemodynamically significant stenosis. Popliteal: Patent without hemodynamically significant stenosis. No aneurysm or abnormal medial deviation is noted. Anterior Tibial: Heavy calcification degrades evaluation of the vessel lumen. Tibioperoneal Trunk: Patent without hemodynamically significant stenosis. Peroneal: Heavily calcified but appears patent. Posterior Tibial: Occluded Dorsalis Pedis: Heavy calcification degrades evaluation. The common and lateral plantar arteries are not opacified and may be occluded. ADDITIONAL FINDINGS: There is an approximately 8.3 x 12.9 x 31.4 cm mixed density hematoma that predominantly occupies the posterior muscular compartment of the thigh that also extends superiorly along the fem-pop bypass graft within the sartorius muscular sheath. No active extravasation of contrast is identified in the thigh. There is moderate diffuse soft tissue edema in the right lower extremity. No acute osseous abnormality is identified. IMPRESSION: Large mixed density hematoma in the posterior muscular compartment of the thigh and extending superiorly along the fem-pop bypass graft within the sartorius muscular sheath. No active extravasation of contrast is identified in the thigh. Severe focal narrowing of the bypass graft in the mid to distal thigh by extrinsic mass effect from the hematoma.
[2025-05-22] MEDS: normal saline 1000ML IV soln IVB ONE (09:25)
[2025-05-22] MEDS: CefTRIAXone 2gm/D5W 50ml BAG 50 ML IV ONE (09:58)
[2025-05-22 11:12] LABS: MEAN PLATELET VOLUME 7.9 FL (7.4-10.4); RED CELL DISTRIBUTION WIDTH 16.7 % (11.5-14.5)
[2025-05-22 11:16] LABS: CREATININE 0.99 MG/DL (0.40-0.90); TOTAL CARBON DIOXIDE 24.1 MMOL/L (24-32); eCRCL 47 ML/MIN; eGFR 54 ML/MIN
[2025-05-22] MEDS: normal saline 1000ml 1,000 ML IV ONE (14:11)
[2025-05-22 16:15] VITALS: TEMP 97.2
[2025-05-22] MEDS: haloperidol lactate 5mg/ml inj IM ONE (16:57)
[2025-05-22 17:12] VITALS: BP 163/60; PULSE 113; RESP 13; O2SAT 96
== END 2025-05-22 17:18 | disposition short-term general hospital (02) ==
LOC: ER 06:40
DX: S70.11XA Contusion of right thigh, initial encounter (principal); D64.9 Anemia, unspecified; N39.0 Urinary tract infection, site not specified; Z79.899 Other long term (current) drug therapy; X58.XXXA Exposure to other specified factors, initial encounter; Y93.89 Activity, other specified; Y92.89 Other specified places as the place of occurrence of the external cause; Y99.8 Other external cause status
CPT/HCPCS: 36415; 71045; 73706; 80048; 80053; 81001; 83605; 84145; 85025; 85610; 85730; 86885; 86900; 86901; 87040; 87077; 87088; 87186; 93005; 96361; 96365; 96372; 96375; 96376; 99285; J0696; J1200; J1630; J2060; J2270; J3486; J7030; J7040; Q9967; 96374